=== PATIENT | male | born 1980 | race African-American/Black ===

== ENCOUNTER 2021-11-03 06:45 | Emergency (ER) | payer OTHER ==
[~2021-11-03] VITALS: Ht 170.2 cm; Wt 69.0 kg
[2021-11-03] MEDS ORDERED: CARB200T MT (06:58)
[2021-11-03] MEDS ORDERED: LEVETIRACETAM 500MG PREMIX 100 ML IV ONE (07:00)
[2021-11-03 07:19] LABS: BASOPHILS % 1.1 % (0.0-2.0); EOSINOPHILS % 3.3 % (0.0-5.0); HEMATOCRIT. 40.6 % (42.0-52.0); HEMOGLOBIN. 13.9 g/dL (14.0-18.0); LYMPHOCYTES % 31.2 % (20.0-50.0); MEAN CORPUSCULAR HEMOGLOBIN 28.8 pg (28.0-32.0); MEAN CORPUSCULAR VOLUME 84.4 fL (80.0-94.0); MONOCYTES % 8.9 % (2.0-8.0); NEUTROPHILS % 55.5 % (40.0-76.0); RED BLOOD CELL COUNT 4.81 mill/uL (4.7-6.1); RED CELL DISTRIBUTION WIDTH 13.5 % (11.6-14.6)
[2021-11-03 07:29] LABS: CHLORIDE 96 mEq/L (98-107)
[2021-11-03 07:37] LABS: CARBAMAZEPINE 1.1 ug/mL (4-12)
[2021-11-03] MEDS ORDERED: CARBAMAZEPINE 200MG TABLET PO ONE (08:00)
[2021-11-03 08:24] LABS: PLATELET 104 x1000/uL (130-400)
[2021-11-03] MEDS ORDERED: LEVE1000 MT (09:27)
[2021-11-03 09:52] VITALS: BP 101/62
== END 2021-11-03 09:46 | disposition home or self-care (01) ==
LOC: ER 06:45
DX: R56.9 Unspecified convulsions (principal); R42 Dizziness and giddiness; I10 Essential (primary) hypertension; F17.290 Nicotine dependence, other tobacco product, uncomplicated; Z98.890 Other specified postprocedural states
CPT/HCPCS: 36415; 80053; 80156; 82962; 85025; 96365; 99284; J1953

== ENCOUNTER 2021-11-03 11:43 | Inpatient (IN) | payer OTHER ==
[~2021-11-03] VITALS: Ht 165.1 cm; Wt 67.6 kg
[~2021-11-03 11:43] MED LIST: CARB200T MT; LEVE1000 MT
[2021-11-03] MEDS ORDERED: LEVETIRACETAM 500MG PREMIX 100 ML IV ONE (12:00)
[2021-11-03 12:13] LABS: BASOPHILS % 1.4 % (0.0-2.0); HEMATOCRIT. 38.5 % (42.0-52.0); HEMOGLOBIN. 13.1 g/dL (14.0-18.0); LYMPHOCYTES % 22.5 % (20.0-50.0); MEAN CORPUSCULAR HEMOGLOBIN 28.7 pg (28.0-32.0); MEAN CORPUSCULAR VOLUME 84.1 fL (80.0-94.0); MEAN PLATELET VOLUME 9.4 fl (7.4-10.4); MONOCYTES % 10.8 % (2.0-8.0); NEUTROPHILS % 64.3 % (40.0-76.0); PLATELET 177 x1000/uL (130-400); RED BLOOD CELL COUNT 4.58 mill/uL (4.7-6.1); RED CELL DISTRIBUTION WIDTH 13.5 % (11.6-14.6)
[2021-11-03] MEDS ORDERED: LORAZEPAM 2MG/ML CPJ IV ONE (12:15)
[2021-11-03] MEDS ORDERED: SODIUM CHLORIDE 0.9% 1,000 ML IV ONE (12:15)
[2021-11-03 12:17] LABS: CHLORIDE 96 mEq/L (98-107)
[2021-11-03 12:26] LABS: ETHANOL BLOOD < 10 mg/dL
[2021-11-03] MEDS ORDERED: CLONIDINE 0.1MG TABLET PO PRN (15:00)
[2021-11-03] MEDS ORDERED: ACETAMINOPHEN 325MG TABLET PO PRN (15:00)
[2021-11-03] MEDS ORDERED: ONDANSETRON HCL 4MG/2ML INJ IV PRN (15:00)
[2021-11-03] MEDS ORDERED: DIPHENHYDRAMINE 50MG/ML VIAL IV PRN (15:00)
[2021-11-03] MEDS ORDERED: LORAZEPAM 2MG/ML CPJ IV PRN (15:00)
[2021-11-03 15:08] LABS: *AMPHETAMINES SCREEN URINE NEGATIVE (NEGATIVE); *BARBITURATES SCREEN URINE NEGATIVE (NEGATIVE); *BENZODIAZEPINES SCREEN URINE NEGATIVE (NEGATIVE); *COCAINE SCREEN URINE NEGATIVE (NEGATIVE); CANNABINOID URINE SCREEN PRESUMTIVE POSITIVE (NEGATIVE); METHADONE URINE SCREEN NEGATIVE (NEGATIVE); OPIATES URINE SCREEN NEGATIVE (NEGATIVE); PHENCYCLIDINE URINE SCREEN NEGATIVE (NEGATIVE)
[2021-11-03] MEDS ORDERED: DEXTROSE 50% WATER 50ML SYRINGE IV PRN (15:15)
[2021-11-03 15:18] VITALS: BP 150/76
[2021-11-03 16:00] VITALS: BP 145/69
[2021-11-03] MEDS ORDERED: BLOOD SUGAR DIAGNOSTIC STRIP TEST SCH (17:20)
[2021-11-03] MEDS ORDERED: INSULIN LISPRO 100 UNITS/ML SUBCUT SCH (17:50)
[2021-11-03] MEDS ORDERED: MULTIVITAMINS,THER W-MINERALS TABLET PO SCH (20:30)
[2021-11-03] MEDS ORDERED: FOLIC ACID 1MG TABLET PO SCH (20:30)
[2021-11-03] MEDS ORDERED: THIAMINE HCL 100MG TABLET PO SCH (20:30)
[2021-11-03] MEDS ORDERED: LEVETIRACETAM 500MG TABLET PO SCH (21:00)
== END 2021-11-03 19:55 | disposition left against medical advice (07) | DRG 53 ==
LOC: ER 11:48 → 6WST 13:19 → ENRESERV 13:45
PROVIDERS: ADMIT Internal Medicine; ATTEND Internal Medicine
DX: G40.909 Epilepsy, unspecified, not intractable, without status epilepticus (principal); F12.90 Cannabis use, unspecified, uncomplicated; I10 Essential (primary) hypertension; R73.9 Hyperglycemia, unspecified; Z79.899 Other long term (current) drug therapy; Z86.73 Personal history of transient ischemic attack (TIA), and cerebral infarction without residual deficits
CPT/HCPCS: 36415; 80053; 80305; 80320; 82962; 83036; 85025; 93005; 99285; J1953; J2060; J7030; G0480